=== PATIENT | male | born 1990 | race African-American/Black ===

== ENCOUNTER 2018-06-16 21:17 | Emergency (ER) | payer SELFPAY | END 2018-06-16 21:20 | disposition left against medical advice (07) | LOC: EMS 21:18 | DX: R07.0 Pain in throat (principal); Z53.21 Procedure and treatment not carried out due to patient leaving prior to being seen by health care provider ==

== ENCOUNTER 2018-06-17 01:14 | Emergency (ER) | payer MEDICAID ==
[~2018-06-17] VITALS: Ht 182.9 cm; Wt 65.9 kg
[2018-06-17] MEDS ORDERED: NAPROXEN 250 MG TABLET PO ONE (04:15)
[2018-06-17] MEDS ORDERED: CLINDAMYCIN HCL 150 MG CAPSULE PO ONE (04:15)
[2018-06-17 04:30] VITALS: BP 132/71
== END 2018-06-17 04:30 | disposition home or self-care (01) ==
LOC: EMS 01:15
DX: J02.0 Streptococcal pharyngitis (principal); F12.90 Cannabis use, unspecified, uncomplicated; J45.909 Unspecified asthma, uncomplicated
CPT/HCPCS: 87430